=== PATIENT | male | born 1980 | race Caucasian/White ===

== ENCOUNTER 2024-04-13 08:29 | Emergency (ER) | payer SELFPAY ==
[~2024-04-13] VITALS: Ht 170.2 cm; Wt 109.1 kg
[2024-04-13] MEDS ORDERED: DOXYCYCLINE 10100 MG PO (09:50)
[2024-04-13] MEDS ORDERED: MOTRIN 800800 MG/TAB PO (09:50)
[2024-04-13] MEDS ORDERED: cefTRIAXone 1 G,Lidocaine PF 1% 2.1 ML IM ONE (10:00)
[2024-04-13 10:38] VITALS: BP 168/99; PULSE 59; TEMP 97.9
== END 2024-04-13 10:40 | disposition home or self-care (01) ==
LOC: COL.ER 08:29
DX: J18.9 Pneumonia, unspecified organism (principal)
CPT/HCPCS: J0696